=== PATIENT | female | born 1950 | race American Indian/Alaskan Native ===

== ENCOUNTER 2017-06-27 16:31 | Emergency (ER) | payer MEDICARE ==
[2017-06-27] MEDS ORDERED: NACL 0.9% 1000 ML 1,000 ML IV ONE (17:35)
--- NOTE | 2017-06-27 17:35 | Emergency Department Report ---
Chief Complaint: Extremity Injury, Lower Stated Complaint: LEFT LEG PAIN/CRAMPS - HPI History of Present Illness: 66 yo female presents with left leg pain, numbness and "drawing up" (?weakness or cramp). Hx of CVA 2004 with residual left sided weakness. Received flu vaccination on . - Exam Vital Signs: Vital Signs 06/27/17 16:34 Temperature 97.6 F Pulse Rate 70 Respiratory 18 Rate Blood Pressure 157/91 O2 Sat by Pulse 100 Oximetry MSE screening note: Focused history and physical exam performed. Due to findings the following was ordered: ED Disposition for MSE Condition: Stable
[2017-06-27] MEDS ORDERED: PERCOCET 5/325 PO ONE (17:37)
--- NOTE | 2017-06-27 18:51 | Cat Scan Report ---
FINAL REPORT EXAM: CT HEAD/BRAIN WO CON HISTORY: Altered Mental Status TECHNIQUE: CT head without contrast PRIORS: None. FINDINGS: No acute intra-axial or extra-axial hemorrhage is identified. There is no evidence of midline shift or mass effect. The ventricles and sulci are within normal limits. Shoemaker-white matter differentiation is intact. Remote right internal capsule infarct extending to the periventricular white matter noted. No acute parenchymal abnormalities seen. There are patchy and confluent hypodensities within the supratentorial white matter. Bony calvarium is grossly intact. Visualized portions of the mastoids and paranasal sinuses are unremarkable. IMPRESSION: Chronic ischemic changes No acute abnormality identified
[2017-06-27 18:59] LABS: Basophils % (Auto) 0.5 % (0.0-1.8); Eosinophils % (Auto) 0.1 % (0.0-4.3); Hematocrit 42.7 % (30.3-42.9); Hemoglobin 13.5 gm/dl (10.1-14.3); Lymphocytes # (Auto) 0.6 K/mm3 (1.2-5.4); Lymphocytes % (Auto) 7.2 % (13.4-35.0); Mean Corpuscular HGB Conc 32 % (30-34); Mean Corpuscular Hemoglobin 26 pg (28-32); Mean Corpuscular Volume 83 fl (79-97); Monocytes # (Auto) 0.3 K/mm3 (0.0-0.8); Monocytes % (Auto) 3.3 % (0.0-7.3); Platelet Count 186 K/mm3 (140-440); Red Blood Count 5.13 M/mm3 (3.65-5.03); Red Cell Distribution Width 13.4 % (13.2-15.2)
--- NOTE | 2017-06-27 19:02 | XRay Report ---
FINAL REPORT EXAM: XR CHEST 1V AP HISTORY: Altered Mental Status TECHNIQUE: upright single view chest PRIORS: None. FINDINGS: Cardiac and mediastinal contours are unremarkable. No focal pulmonary infiltrate is identified. No pleural fluid collection seen. Pulmonary vasculature is unremarkable. IMPRESSION: Negative single-view chest
[2017-06-27 19:22] LABS: Alanine Aminotransferase 16 units/L (7-56); Albumin 4.1 g/dL (3.9-5); BUN/Creatinine Ratio 25; Blood Urea Nitrogen 15 mg/dL (7-17); Calcium 10.8 mg/dL (8.4-10.2); Hemolysis Index 7
[2017-06-27] MEDS ORDERED: ASPIRIN PO ONE (23:07)
[2017-06-27] MEDS ORDERED: NORCO 5/325 PO ONE (23:07)
[2017-06-27] MEDS ORDERED: FLEXERIL PO ONE (23:11)
--- NOTE | 2017-06-27 23:14 | Emergency Department Report ---
HPI - General Chief Complaint: Extremity Injury, Lower Time Seen by Provider: 06/27/17 22:55 - HPI HPI: Room 3 The patient is a 66-year-old female presented with a chief complaint of left lower extremity weakness and paresthesia. The patient states yesterday afternoon began developing tingling and weakness in her left lower extremity. The patient has a history of a previous CVA but states the weakness and paresthesia are new. The patient states when she had her first CVA she presented the same way. Patient denies new upper extremity paresthesia, headache, dysarthria or dysphagia. Location: Left leg Duration: Constant since yesterday afternoon Quality: Paresthesia, discomfort, weakness Severity: Moderate Modifying factors: [see above] Context: [see above] Mode of transportation: [not driving] ED Past Medical Hx - Past Medical History Previous Medical History?: Yes Hx CVA: Yes (left side weakness) - Surgical History Past Surgical History?: Yes Additional Surgical History: Parathyroid removed, Cyst removed from left back area - Family History Family history: no significant - Social History Smoking Status: Never Smoker Substance Use Type: None (denies illicit drug use), Alcohol (extremely rarely), Prescribed ED Review of Systems ROS: Stated complaint: LEFT LEG PAIN/CRAMPS Other details as noted in HPI Neurological: weakness, paresthesias. denies: headache Physical Exam - Physical Exam Vital Signs: Vital Signs 06/27/17 06/27/17 16:34 22:15 Temperature 97.6 F 97.6 F Pulse Rate 70 69 Respiratory 18 17 Rate Blood Pressure 157/91 Blood Pressure 129/82 [Right] O2 Sat by Pulse 100 100 Oximetry Physical Exam: GENERAL: The patient is well-developed well-nourished female lying on stretcher not appearing to be in acute distress. [] HEENT: Normocephalic. Atraumatic. Extraocular motions are intact. Patient has moist mucous membranes. NECK: Supple. Trachea midline CHEST/LUNGS: Clear to auscultation. There is no respiratory distress noted. HEART/CARDIOVASCULAR: Regular. There is no tachycardia. There is no gallop rub or murmur. 2+ left DP ABDOMEN: Abdomen is soft, nontender. Patient has normal bowel sounds. There is no abdominal distention. SKIN: There is no rash. There is no edema. There is no diaphoresis. NEURO: The patient is awake, alert, and oriented. The patient is cooperative. Cranial nerves II through XII grossly intact with the exception of cranial nerve XI on the left. Normal sensation bilaterally in the face and bilateral upper extremities. Patient complains of paresthesia in the left lower extremity. The patient has normal speech, there is baseline weakness in the left upper extremity from previous CVA. The patient states she exhibits more weakness in the left lower extremity when compared to her baseline MUSCULOSKELETAL: There is no evidence of acute injury. There is no tenderness to palpation of the left lower extremity ED Course Vital Signs 06/27/17 06/27/17 16:34 22:15 Temperature 97.6 F 97.6 F Pulse Rate 70 69 Respiratory 18 17 Rate Blood Pressure 157/91 Blood Pressure 129/82 [Right] O2 Sat by Pulse 100 100 Oximetry ED Medical Decision Making - Lab Data Result diagrams: 06/27/17 18:40 06/27/17 18:40 Laboratory Tests 06/27/17 06/27/17 06/27/17 18:40 18:40 18:40 WBC 7.8 RBC 5.13 H Hgb 13.5 Hct 42.7 MCV 83 MCH 26 L MCHC 32 RDW 13.4 Plt Count 186 Lymph % (Auto) 7.2 L [place] % (Auto) 3.3 Eos % (Auto) 0.1 Baso % (Auto) 0.5 Lymph # 0.6 L [place] # 0.3 Eos # 0.0 Baso # 0.0 Seg Neutrophils % 88.9 H Seg Neutrophils # 6.9 Sodium 140 Potassium 3.5 L Chloride 101.7 Carbon Dioxide 25 Anion Gap 17 BUN 15 Creatinine 0.6 L Estimated GFR > 60 BUN/Creatinine Ratio 25 Glucose 150 H Lactic Acid 1.60 Calcium 10.8 H Total Bilirubin 0.40 AST 16 ALT 16 Alkaline Phosphatase 105 Troponin T Total Protein 7.3 Albumin 4.1 Albumin/Globulin Ratio 1.3 06/27/17 18:40 WBC RBC Hgb Hct MCV MCH MCHC RDW Plt Count Lymph % (Auto) [place] % (Auto) Eos % (Auto) Baso % (Auto) Lymph # [place] # Eos # Baso # Seg Neutrophils % Seg Neutrophils # Sodium Potassium Chloride Carbon Dioxide Anion Gap BUN Creatinine Estimated GFR BUN/Creatinine Ratio Glucose Lactic Acid Calcium Total Bilirubin AST ALT Alkaline Phosphatase Troponin T < 0.010 Total Protein Albumin Albumin/Globulin Ratio - EKG Data -: EKG Interpreted by Me EKG shows normal: sinus rhythm Rate: normal - EKG Data When compared to previous EKG there are: previous EKG unavailable Interpretation: other (no ischemic changes seen) - Radiology Data Radiology results: report reviewed (CT head, chest x-ray), image reviewed (CT head, chest x-ray) interpreted by me: Chest x-ray-no focal infiltrates, pneumothorax FINAL REPORT EXAM: CT HEAD/BRAIN WO CON HISTORY: Altered Mental Status TECHNIQUE: CT head without contrast PRIORS: None. FINDINGS: No acute intra-axial or extra-axial hemorrhage is identified. There is no evidence of midline shift or mass effect. The ventricles and sulci are within normal limits. Shoemaker-white matter differentiation is intact. Remote right internal capsule infarct extending to the periventricular white matter noted. No acute parenchymal abnormalities seen. There are patchy and confluent hypodensities within the supratentorial white matter. Bony calvarium is grossly intact. Visualized portions of the mastoids and paranasal sinuses are unremarkable. IMPRESSION: Chronic ischemic changes No acute abnormality identified Transcribed By: SHENA Dictated By: ANT MCALLISTER MD Electronically Authenticated By: ANT MCALLISTER MD Signed Date/Time: 06/27/171446 DD/ 46 TD/TT: 06/27/171446 FINAL REPORT EXAM: XR CHEST 1V AP HISTORY: Altered Mental Status TECHNIQUE: upright single view chest PRIORS: None. FINDINGS: Cardiac and mediastinal contours are unremarkable. No focal pulmonary infiltrate is identified. No pleural fluid collection seen. Pulmonary vasculature is unremarkable. IMPRESSION: Negative single-view chest Transcribed By: SHENA Dictated By: ANT MCALLISTER MD Electronically Authenticated By: NAT MCALLISTER MD Signed Date/Time: 06/27/17 145 DD/ 57 TD/TT: 06/27/171457 - Differential Diagnosis CVA, myalgia, DVT Critical care attestation.: If time is entered above; I have spent that time in minutes in the direct care of this critically ill patient, excluding procedure time. ED Disposition Clinical Impression: Left leg weakness, Left leg paresthesias Disposition: OP ADMIT IP TO THIS HOSP Is pt being admited?: Yes Does the pt Need Aspirin: Yes Condition: Fair Time of Disposition: 23:38 (hospitalist paged (Dr Kathleen))
[2017-06-28 00:16] LABS: Bilirubin,Urine NEG (Negative); Blood,Urine NEG (Negative); Color,Urine Yellow (Yellow); Hyaline Casts,Urine 1 /LPF; Mucus,Urine FEW /HPF; Nitrite,Urine NEG (Negative); Protein,Urine <15 mg/dL mg/dL (Negative)
[2017-06-28] MEDS ORDERED: SUBLIMAZE IV ONE (00:24)
[2017-06-28] MEDS ORDERED: ZOFRAN IV ONE (00:24)
--- NOTE | 2017-06-28 01:27 | History and Physical Report ---
History of Present Illness Date of examination: 06/28/17 Date of admission: 06/27/17 23:41 Chief complaint: Pain and tingling on the left leg History of present illness: 66 year old -[place]aj[place] female with past medical history significant for stroke, hypertension, sarcoidosis, hypothyroidism, osteoporosis presented to the emergency department complaining of tingling and pain on the left leg that started 2 days ago. She says the pain is spasm-like, 9 out of 10 in intensity, with no radiation and associated with weakness of the left lower extremity to the level she needed assistance to ambulate. She had flu shot a week ago and after that she had sore throat and cramp all over her body. She said she felt the same symptoms when she had a stroke in 2004. Patient denied fever, chills, palpitation, chest pain. REVIEW OF SYSTEMS: GENERAL: no weight change, no fatigue, no fever HEAD: no head ache EYES: no blurry vision, no acute visual loss EARS: no hearing loss, no discharge, no earache NOSE: no stuffiness, no sneezing, no discharge MOUTH, THROAT AND NECK: no bleeding gums, no sore throat, no swollen neck CARDIAC: no palpitations, no dyspnea on exertion, no orthopnea, no PND, no edema , no chest pain RESPIRATORY: no shortness of breath, no wheeze, no cough, no sputum, no hemoptysis, no asthma GI: no decreased appetite, no nausea, no vomiting, no dysphagia, no diarrhea, no constipation, no abdominal pain URINARY: no change in frequency, no urgency, no polyuria, no hematuria, no incontinence MUSCULOSKELETAL: no muscle weakness, no pain, no joint stiffness NEUROLOGIC: no loss of sensation/numbness,+ tingling, no tremors, + weakness HEMATOLOGIC: no anemia, no easy bruising SKIN: no rashes ENDOCRINE: no heat/cold intolerance, no polyuria, no polydipsia, no thyroid problems, no diabetes PSYCHIATRIC: no anxiety, no depression, no suicidal ideations Past History Past Medical History: hypertension, hypothyroidism, stroke, other (osteoporosis) Past Surgical History: hysterectomy Social history: full code. denies: smoking, alcohol abuse, prescription drug abuse, IV drug use Family history: no significant family history Medications and Allergies Allergies Allergy/AdvReac Type Severity Reaction Status Date / Time No Known Allergies Allergy Verified 06/28/17 01:43 Home Medications Medication Instructions Recorded Confirmed Last Taken Type Alendronate Sodium [Fosamax] 70 mg PO 1XW 06/28/17 06/28/17 Unknown History Aspirin 81 mg PO DAILY 06/28/17 06/28/17 Unknown History AtorvaSTATin [Lipitor] 20 mg PO QHS 06/28/17 06/28/17 Unknown History Levothyroxine Sodium [Synthroid] 150 mcg PO DAILY 06/28/17 06/28/17 Unknown History Lisinopril 20 mg PO BID 06/28/17 06/28/17 Unknown History Metoprolol [Lopressor] 25 mg PO BID 06/28/17 06/28/17 Unknown History amLODIPine [Norvasc] 5 mg PO DAILY 06/28/17 06/28/17 Unknown History Exam - Physical Exam Narrative exam: Not in cardiopulmonary distress. The patient appeared well nourished and normally developed. Vital signs as documented. Head exam is unremarkable. No scleral icterus . Neck is without jugular venous distension, thyromegaly, or carotid bruits. Lungs are clear to auscultation. Cardiac exam reveals regular rate and Rhythm. First and second heart sounds normal. No murmurs, rubs or gallops. Abdominal exam reveals normal bowel sounds, no masses, no organomegaly and no aortic enlargement. Extremities are nonedematous and both femoral and pedal pulses are normal. KENO WRITER: Alert and oriented 3. Mild weakness of the left lower extremity compared to the right. - Constitutional Vitals: Temp Pulse Resp BP Pulse Ox 97.6 F 64 14 143/76 97 06/27/17 22:15 06/28/17 01:00 06/28/17 01:00 06/28/17 01:00 06/28/17 01:00 Results - Labs CBC & Chem 7: 06/27/17 18:40 06/27/17 18:40 Labs: Laboratory Last Values WBC 7.8 K/mm3 (4.5-11.0) 06/27/17 18:40 RBC 5.13 M/mm3 (3.65-5.03) H 06/27/17 18:40 Hgb 13.5 gm/dl (10.1-14.3) 06/27/17 18:40 Hct 42.7 % (30.3-42.9) 06/27/17 18:40 MCV 83 fl (79-97) 06/27/17 18:40 MCH 26 pg (28-32) L 06/27/17 18:40 MCHC 32 % (30-34) 06/27/17 18:40 RDW 13.4 % (13.2-15.2) 06/27/17 18:40 Plt Count 186 K/mm3 (140-440) 06/27/17 18:40 Lymph % (Auto) 7.2 % (13.4-35.0) L 06/27/17 18:40 [place] % (Auto) 3.3 % (0.0-7.3) 06/27/17 18:40 Eos % (Auto) 0.1 % (0.0-4.3) 06/27/17 18:40 Baso % (Auto) 0.5 % (0.0-1.8) 06/27/17 18:40 Lymph # 0.6 K/mm3 (1.2-5.4) L 06/27/17 18:40 [place] # 0.3 K/mm3 (0.0-0.8) 06/27/17 18:40 Eos # 0.0 K/mm3 (0.0-0.4) 06/27/17 18:40 Baso # 0.0 K/mm3 (0.0-0.1) 06/27/17 18:40 Seg Neutrophils % 88.9 % (40.0-70.0) H 06/27/17 18:40 Seg Neutrophils # 6.9 K/mm3 (1.8-7.7) 06/27/17 18:40 Sodium 140 mmol/L (137-145) 06/27/17 18:40 Potassium 3.5 mmol/L (3.6-5.0) L 06/27/17 18:40 Chloride 101.7 mmol/L (98-107) 06/27/17 18:40 Carbon Dioxide 25 mmol/L (22-30) 06/27/17 18:40 Anion Gap 17 mmol/L 06/27/17 18:40 BUN 15 mg/dL (7-17) 06/27/17 18:40 Creatinine 0.6 mg/dL (0.7-1.2) L 06/27/17 18:40 Estimated GFR > 60 ml/min 06/27/17 18:40 BUN/Creatinine Ratio 25 % 06/27/17 18:40 Glucose 150 mg/dL (65-100) H 06/27/17 18:40 Lactic Acid 1.60 mmol/L (0.7-2.0) 06/27/17 18:40 Calcium 10.8 mg/dL (8.4-10.2) H 06/27/17 18:40 Total Bilirubin 0.40 mg/dL (0.1-1.2) 06/27/17 18:40 AST 16 units/L (5-40) 06/27/17 18:40 ALT 16 units/L (7-56) 06/27/17 18:40 Alkaline Phosphatase 105 units/L (35-129) 06/27/17 18:40 Troponin T < 0.010 ng/mL (0.00-0.029) 06/27/17 18:40 Total Protein 7.3 g/dL (6.3-8.2) 06/27/17 18:40 Albumin 4.1 g/dL (3.9-5) 06/27/17 18:40 Albumin/Globulin Ratio 1.3 % 06/27/17 18:40 Urine Color Yellow (Yellow) 06/27/17 23:52 Urine Turbidity Clear (Clear) 06/27/17 23:52 Urine pH 5.0 (5.0-7.0) 06/27/17 23:52 Ur Specific [place] 1.024 (1.003-1.030) 06/27/17 23:52 Urine Protein <15 mg/dl mg/dL (Negative) 06/27/17 23:52 Urine Glucose (UA) 50 mg/dL (Negative) 06/27/17 23:52 Urine Ketones Neg mg/dL (Negative) 06/27/17 23:52 Urine Blood Neg (Negative) 06/27/17 23:52 Urine Nitrite Neg (Negative) 06/27/17 23:52 Urine Bilirubin Neg (Negative) 06/27/17 23:52 Urine Urobilinogen 2.0 mg/dL (<2.0) 06/27/17 23:52 Ur Leukocyte Esterase Neg (Negative) 06/27/17 23:52 Urine WBC (Auto) 4.0 /HPF (0.0-6.0) 06/27/17 23:52 Urine RBC (Auto) 4.0 /HPF (0.0-6.0) 06/27/17 23:52 U Epithel Cells (Auto) < 1.0 /HPF (0-13.0) 06/27/17 23:52 Hyaline Casts 1 /LPF 06/27/17 23:52 Urine Mucus Few /HPF 06/27/17 23:52 - Imaging and Cardiology Chest x-ray: image reviewed (normal chest x-ray) CT Scan - head: image reviewed (chronic ischemic changes) Assessment and Plan Assessment and plan: Acute CVA, with left arm weakness and tingling History of CVA Hypertension Hypothyroidism Sarcoidosis Osteoporosis - CT head is negative, stroke workup, neurology consult - Resume appropriate home medications DVT prophylaxis - On heparin Disposition -Admit to telemetry floor Advance Directives: Yes VTE prophylaxis?: Chemical Plan of care discussed with patient/family: Yes
[2017-06-28] MEDS ORDERED: SODIUM CHLORIDE FLUSH SYRINGE 10 ML IV PRN (01:28)
[2017-06-28] MEDS ORDERED: REGLAN PO PRN (01:28)
[2017-06-28] MEDS ORDERED: TYLENOL PO PRN (01:28)
[2017-06-28] MEDS ORDERED: MILK OF MAGNESIA PO PRN (01:28)
[2017-06-28] MEDS ORDERED: PHENERGAN PR PRN (01:28)
[2017-06-28] MEDS ORDERED: PERCOCET 5/325 PO PRN (01:28)
[2017-06-28] MEDS ORDERED: ZOFRAN IV PRN (01:28)
[2017-06-28] MEDS ORDERED: DULCOLAX PR PRN (01:28)
[2017-06-28] MEDS ORDERED: SYNTHROID PO SCH (06:00)
[2017-06-28] MEDS ORDERED: K-DUR PO ONE (09:18)
[2017-06-28] MEDS ORDERED: COLACE PO SCH (10:00)
[2017-06-28] MEDS ORDERED: ZESTRIL PO SCH (10:00)
[2017-06-28] MEDS ORDERED: LOPRESSOR PO SCH (10:00)
[2017-06-28] MEDS ORDERED: PEPCID PO SCH (10:00)
[2017-06-28] MEDS ORDERED: NORVASC PO SCH (10:00)
[2017-06-28] MEDS ORDERED: ASPIRIN PO SCH (10:00)
[2017-06-28] MEDS ORDERED: BABY ASPIRIN PO SCH (10:00)
--- NOTE | 2017-06-28 12:52 | Magnetic Resonance Report ---
MRI BRAIN WITHOUT CONTRAST: 06/27/17 23:41:00 CLINICAL: Stroke. TECHNIQUE: Axial diffusion, T1, T2, FLAIR, gradient echo T2*, and sagittal T1 sequences on a 1.5 Vaishali magnet. FINDINGS: The ventricles and sulci are normal for age. No restricted diffusion. However, extensive bilateral periventricular white matter hyperintensities FLAIR and T2. Several bilateral small basal ganglia chronic lacunar infarcts and several periventricular white matter chronic lacunar infarcts. The largest is in the posterior right basal ganglia. No mass or mass effect. No hemorrhage, edema or extra-axial collection. Normal pituitary and optic chiasm. The brainstem is normal. A single right cerebellar focal hypointensity on gradient echo sequence is consistent with a chronic micro-bleed. Intact vascular flow voids. Normal sinuses. The orbits, and soft tissues are normal. Normal calvarium and skull base. IMPRESSION: 1. No evidence of acute/subacute infarct or hemorrhage. 2. Extensive chronic white matter microangiopathy. 3. Several bilateral basal ganglia and periventricular white matter chronic lacunar infarcts. 4. A single right cerebellar chronic microbleed.
--- NOTE | 2017-06-28 12:53 | Magnetic Resonance Report ---
MRA HEAD WITHOUT CONTRAST: 06/28/17 CLINICAL: Stroke. TECHNIQUE: Axial 3-D [id number] MR angiography of the [place] with review of axial source images. FINDINGS: Intact [place] with no aneurysm, high-grade stenosis or occlusion. Symmetric blood flow in the anterior, middle and posterior cerebral arteries. Normal basilar and vertebral arteries. The left vertebral artery is dominant. IMPRESSION: Normal study.
--- NOTE | 2017-06-28 15:07 | Discharge Summary ---
Providers - Providers Date of Admission: 06/27/17 23:41 Date of discharge: 06/28/17 Attending physician: JENN SWARTZ 06/28/17 Consult to Physician [CONS] Routine Consulting Provider: WOLF BARBOSA Reason For Exam: RLE Place consult to:: Candice Rojas Notified:: yes Phone number called:: [phone] Was contact made?: Yes If yes, spoke with:: left message as instructed Time called:: 09:01 06/28/17 01:28 Consult to Case Management [CONS] Routine Services Needed at Discharge: Physical Therapy Occupational Therapy Evaluate and Treat [CONS] Routine Comment: Reason For Exam: Neuro deficits Physical Therapy Evaluation and Treat [CONS] Routine Comment: Reason For Exam: Neuro deficits Primary care physician: CARLTON DUMONT Hospitalization Condition: Fair Hospital course: 66 year old -Mexican female with past medical history significant for stroke, hypertension, sarcoidosis, hypothyroidism, osteoporosis presented to the emergency department complaining of tingling and pain on the left leg that started 2 days ago. she was admitted for possible stroke work up. Discharge diagnosis; Acute CVA - rulled out Left LE pain, likely neuropathic pain History of CVA Hypertension Hypothyroidism Sarcoidosis Osteoporosis - CT head is negative, MRI/MRA showed no new infraction, - carotid doppler showed <50% stenosis b/l - discussed with neurology and recommended no further intervention - will place on neurontin and flexeril as needed - patient was ambulatory, Resumed home medications - she will f/u outpt with neurology and with her PCP Disposition: DC-01 TO HOME OR SELFCARE Time spent for discharge: 32 minutes Core Measure Documentation - Palliative Care Palliative Care/ Comfort Measures: Not Applicable - Core Measures Any of the following diagnoses?: stroke - Stroke Discharge Requirements Statin for LDL = or >70 mg/dl on DC: Yes Anticoag for atrial fib/atrial flutter: Not Applicable Antithrombotic for ischemic stroke: Yes Exam - Constitutional Vitals: Temp Pulse Resp BP Pulse Ox 98.9 F 57 L 20 127/72 100 06/28/17 07:10 06/28/17 07:00 06/28/17 13:40 06/28/17 07:00 06/28/17 13:40 General appearance: Present: no acute distress, well-nourished - EENT Eyes: Present: PERRL ENT: hearing intact, clear oral mucosa - Neck Neck: Present: supple, normal ROM - Respiratory Respiratory effort: normal Respiratory: bilateral: CTA - Cardiovascular Heart Sounds: Present: S1 & S2. Absent: rub, click - Extremities Extremities: pulses symmetrical, No edema Peripheral Pulses: within normal limits - Abdominal General gastrointestinal: Present: soft, non-tender, non-distended, normal bowel sounds - Integumentary Integumentary: Present: clear, warm, dry - Musculoskeletal Musculoskeletal: gait normal, strength equal bilaterally - Psychiatric Psychiatric: appropriate mood/affect, intact judgment & insight - Neurologic Neurologic: CNII-XII intact, moves all extremities Plan Activity: advance as tolerated, fall precautions Weight Bearing Status: Weight Bear as Tolerated Diet: low fat, low salt Additional Instructions: f/u with dr. Nielsen in one week. Follow up with: CARLTON DUMONT MD [Primary Care Provider] - 7 Days Prescriptions: Cyclobenzaprine HCl [Flexeril 5 MG TAB] 5 mg PO TID PRN #30 tab PRN Reason: Muscle Spasm Gabapentin [Neurontin] 300 mg PO BID #60 cap
[2017-06-28 19:56] VITALS: BP 145/80
== END 2017-06-28 18:40 | disposition admitted as inpatient to this hospital (09) ==
LOC: ED 16:31 → UNDOADMIN 23:41 → 4A 23:41 → ED 06-28 18:40
DX: R29.898 Other symptoms and signs involving the musculoskeletal system (principal); R20.2 Paresthesia of skin; Z86.73 Personal history of transient ischemic attack (TIA), and cerebral infarction without residual deficits
CPT/HCPCS: 36415; 70450; 70544; 70551; 71045; 80053; 81001; 82140; 84484; 85025; 87040; 87086; 93005; 93010; 93306; 93880; 93971; 96374; 96375; 99285; J2405; J3010